=== PATIENT | male | born 1990 | race Hispanic/Latino ===

== ENCOUNTER 2017-10-25 16:36 | Emergency (ER) | payer OTHER ==
[~2017-10-25] VITALS: Ht 175.3 cm; Wt 122.0 kg
[2017-10-25] MEDS ORDERED: CLINDAMYCIN PHOS 600 MG/ 4 ML VIAL IM ONE (17:00)
[2017-10-25] MEDS ORDERED: DOXYCYCLINE HYCLATE TABLET 100 MG TAB PO ONE (17:00)
[2017-10-25] MEDS ORDERED: CLINDAMYCIN PHOS 300MG/2ML VIAL IM ONE (17:15)
== END 2017-10-25 17:43 | disposition home or self-care (01) ==
LOC: ER 16:36
DX: M79.662 Pain in left lower leg (principal); R21 Rash and other nonspecific skin eruption; L03.116 Cellulitis of left lower limb
CPT/HCPCS: 99283

== ENCOUNTER 2017-10-29 19:36 | Inpatient (IN) | payer OTHER ==
[~2017-10-29] VITALS: Ht 177.8 cm; Wt 126.1 kg
[2017-10-29] MEDS ORDERED: MORPHINE SULFATE INJ 4 MG/ML INJ IV STA (19:49)
[2017-10-29] MEDS ORDERED: SODIUM CHLORIDE 0.9% 1000ML 1,000 ML IV STA (19:49)
[2017-10-29] MEDS ORDERED: ONDANSETRON HCL INJ 2 MG/ML VIAL IV STA (19:49)
[2017-10-29] MEDS ORDERED: VANCOMYCIN 1GM/NS 250 ML 250 ML IV SCH (20:00)
[2017-10-29 20:21] LABS: BASOPHILS % 0.3 % (0.0-1.0); EOSINOPHILS # (AUTO) 0.3 (0.0-0.4); EOSINOPHILS % 2.4 % (0.0-6.0); HEMATOCRIT 41.7 % (38.2-49.6); HEMOGLOBIN 13.9 g/dL (14.0-18.0); LYMPHOCYTES # (AUTO) 2.4 (1.0-3.2); LYMPHOCYTES % 17.7 % (18.0-39.1); MEAN CORPUSCULAR HEMOGLOBIN 28.5 pg (28-32); MEAN CORPUSCULAR HGB CONC 33.3 g/dL (31-35); MEAN CORPUSCULAR VOLUME 85.5 fL (81-99); MONOCYTES # (AUTO) 0.7 (0.2-0.8); PLATELET COUNT 386 x10e3/uL (140-360); RED BLOOD COUNT 4.88 x10e6/uL (4.3-5.7); RED CELL DISTRIBUTION WIDTH 12.6 % (11.7-14.4)
[2017-10-29] MEDS ORDERED: ONDANSETRON HCL INJ 2 MG/ML VIAL IV PRN (20:30)
[2017-10-29 20:41] LABS: ALANINE AMINOTRANSFERASE 26 IU/L (0-55); ALBUMIN 3.8 g/dL (3.5-5.0); ALBUMIN/GLOBULIN RATIO 0.9 (0.8-2.0); ALKALINE PHOSPHATASE 96 IU/L (40-150); ANION GAP 13.8 mmol/L (8-16); BLOOD UREA NITROGEN 14 mg/dL (7-26); BUN/CREATININE RATIO 16 (6-25); CALCIUM 9.8 mg/dL (8.4-10.2); CARBON DIOXIDE 23 mmol/L (22-29); CHLORIDE 105 mmol/L (98-107); CREATININE, SERUM 0.85 mg/dL (0.72-1.25); EST GLOMERULAR FILTRATION RATE > 60 ML/MIN (60-); GLUCOSE 126 mg/dL (74-118); POTASSIUM 3.8 mmol/L (3.5-5.1); SODIUM 138 mmol/L (136-145)
[2017-10-29 20:45] LABS: BILIRUBIN,URINE NEGATIVE (NEGATIVE); CLARITY,URINE CLEAR (CLEAR); COLOR,URINE YELLOW (YELLOW); KETONES,URINE NEGATIVE (NEGATIVE); LEUKOCYTE ESTERASE ,URINE NEGATIVE (NEGATIVE); NITRITE,URINE NEGATIVE (NEGATIVE); PROTEIN,URINE DIPSTICK NEGATIVE (NEGATIVE); URINE UROBILINOGEN 0.2 mg/dL (0.2 - 1)
[2017-10-29 21:05] LABS: EPITHELIAL CELLS,URINE RARE /LPF; WBC,URINE (MAN) 0-5 /HPF (0-5)
[2017-10-29 21:06] LABS: MUCUS,URINE MODERATE (RARE)
[2017-10-29] MEDS: PIPER-TAZ 3.375 GM 50 ML IV SCH (21:58)
--- NOTE | 2017-10-29 22:34 | Diagnostic Imaging Report ---
LOWER LEG LEFT HISTORY: Left leg pain. COMPARISON: None FINDINGS: Bones: No displaced fracture. Well-circumscribed osseous fragment distal to the lateral malleolus most likely related to old injury. Osseous alignment is within normal limits. Joints: The joint spaces are well-maintained. Soft tissues: Mild to moderate diffuse soft tissue edema along the distal left lower extremity IMPRESSION: 1. No acute osseous abnormality. 2. Soft tissue edema in the distal left lower extremity Signed by: Dr. Fred Dobbins M.D. on 10/29/2017 10:31 PM
[2017-10-30] VITALS (10 sets, daily range): BP systolic 103–149; BP diastolic 55–78
[2017-10-30] MEDS: PIPER-TAZ 3.375 GM 50 ML IV SCH ×2 (02:00→08:40)
[2017-10-30] MEDS: SODIUM CHLORIDE 0.9% 1000ML 1,000 ML IV SCH ×3 (04:37→16:31)
[2017-10-30 05:22] LABS: BASOPHILS # (AUTO) 0.1 (0.0-0.1); BASOPHILS % 0.4 % (0.0-1.0); EOSINOPHILS # (AUTO) 0.4 (0.0-0.4); HEMATOCRIT 36.9 % (38.2-49.6); LYMPHOCYTES # (AUTO) 3.5 (1.0-3.2); MEAN CORPUSCULAR HEMOGLOBIN 28.4 pg (28-32); MEAN CORPUSCULAR HGB CONC 32.5 g/dL (31-35); MEAN CORPUSCULAR VOLUME 87.4 fL (81-99); MONOCYTES # (AUTO) 0.8 (0.2-0.8); NEUTROPHILS % 65.1 % (38.7-80.0); PLATELET COUNT 329 x10e3/uL (140-360); RED BLOOD COUNT 4.22 x10e6/uL (4.3-5.7); RED CELL DISTRIBUTION WIDTH 12.8 % (11.7-14.4)
[2017-10-30 06:03] LABS: ALANINE AMINOTRANSFERASE 21 IU/L (0-55); ALBUMIN 3.4 g/dL (3.5-5.0); ALBUMIN/GLOBULIN RATIO 0.9 (0.8-2.0); ALKALINE PHOSPHATASE 86 IU/L (40-150); ANION GAP 11.6 mmol/L (8-16); BLOOD UREA NITROGEN 14 mg/dL (7-26); BUN/CREATININE RATIO 16 (6-25); CALCIUM 9.3 mg/dL (8.4-10.2); CARBON DIOXIDE 27 mmol/L (22-29); CHLORIDE 106 mmol/L (98-107); CREATININE, SERUM 0.88 mg/dL (0.72-1.25); EST GLOMERULAR FILTRATION RATE > 60 ML/MIN (60-); GLUCOSE 94 mg/dL (74-118); POTASSIUM 4.6 mmol/L (3.5-5.1); SODIUM 140 mmol/L (136-145)
[2017-10-30] MEDS: VANCOMYCIN 1GM/NS 250 ML 250 ML IV SCH ×2 (09:57→21:43)
[2017-10-30] MEDS ORDERED: ENOXAPARIN SOD INJ 40 MG/0.4 ML SYR SC SCH (10:30)
--- NOTE | 2017-10-30 11:09 | History and Physical ---
Mr. Camp is a pleasant 27-year-old man who works at a [employer]. CHIEF COMPLAINT: He presented to the emergency room overnight with left leg redness and discomfort. HISTORY OF PRESENT ILLNESS: The patient reports he first noted some redness of left leg in September and saw Dr. Ruiz. He was given evidently generic Bactrim and some topical lotion but it did not resolve the problem. He reports that the left leg and left foot do swell when he is ambulatory, and it is painful and throbbing. He thinks he has not had any fever. PAST MEDICAL HISTORY: Relatively insignificant. He reports that he did have problems with acne when he was a teenager. He reports he visited at [place] once in 2013 with chest discomfort, found to be gastrointestinal in origin. He had a keloid removed from his left ear in July [address] Starks. MEDICATIONS: He takes no regular medications. PERSONAL AND SOCIAL HISTORY: He is a smoker. He reports that he stopped using alcohol when he started the previous antibiotic. FAMILY HISTORY: Reports his father had a recent pacemaker. His mother seems well. He has a sister who lives in [place] but cannot tell me anymore about that. REVIEW OF SYSTEMS Gastrointestinal: Negative. Cardiac: Negative. PHYSICAL EXAMINATION GENERAL: Exam at this time shows a large, obese man, 5 feet 10 inches tall, weighing 278 pounds. BMI is 39.88. VITAL SIGNS: Blood pressure 108/55. Afebrile. HEAD, EYES, EARS, NOSE AND THROAT: Unremarkable. NECK: He has several scars from acne. No jugular venous distention. No bruit. THORAX: Heart sounds S1 and S2 are equal. No murmurs. LUNGS: Clear. ABDOMEN: Markedly protuberant. Multiple scars from acne. Normal bowel sounds. Nontender. EXTREMITIES: Left anterior tibial area is erythematous with some sloughing of the superficial structures of skin. X-ray of the leg is negative. ASSESSMENT 1. Cellulitis, etiology not clear. 2. Rule out possible deep venous thrombosis with previous airplane flight, though it was in July. Will check venous Doppler scan of legs. Broad-spectrum antibiotics. Consult ID. Job#: [id number] cc:DARYL RUIZ MD
--- NOTE | 2017-10-30 13:02 | Consultation ---
DATE OF CONSULTATION: October 30, 2017 HISTORY OF PRESENT ILLNESS: Mr. Camp is a pleasant 27-year-old gentleman with a past medical history with some keloid removed from his left ear and no other medical history in the past. He apparently had some redness on his left lower extremity. He went and saw Dr. Ruiz. He received some antibiotics, sounds to be IM antibiotic, and also given some Bactrim for 2 weeks and sent home. Apparently it did not get any better and showed no improvement. He came to the hospital and he states that he received 2 shots when he was here and given Cleocin and doxycycline as oral and discharged home. He was instructed to report back to the hospital if cellulitis did not improve. Apparently it did not improve and patient is here now. PAST MEDICAL HISTORY: As mentioned above, nonsignificant. No other complaints. NO reports of diabetes, hypertension or hypothyroidism or any thyroid issues, disorders. There is no endocrine disorders. No medical issues except states that his labs recently done, sugar was 110. He also had some keloid removed from his left ear with a flap closure which sounds to be more cosmetic. ALLERGIES: ALLERGIC TO CODEINE. SOCIAL HISTORY: Patient works at the [employer] and he smokes about a pack of cigarettes every 3 to 4 days he states. LABORATORY STUDIES: White blood cells of 13.87, hemoglobin 12, platelet count of 329. Sodium 140, potassium 4.6, chloride 102, CO2 27, BUN 0.14, creatinine 0.88, glucose 94. AST 11, ALT 21. UA was not significant. X-ray of the lower extremity showed no acute osseous abnormality. Soft tissue edema over the distal left lower extremity. Blood culture and urine cultures are pending. REVIEW OF SYSTEMS: Complains of left leg cellulitis. Some pain, not significant. No nausea, vomiting, fever or chills, chest pain or shortness of breath. PHYSICAL EXAMINATION GENERAL: Alert and oriented in bed. VITAL SIGNS: Temperature 97.3, pulse 80, respirations 18, blood pressure was 108/55. CV: S1 and S2. CHEST: Equal expansion. Clear to auscultation. No acute distress. ABDOMEN: Soft, obese, nontender. Bowel sounds positive in 4 quadrants. HEENT: Moist, no pallor, no JVD. EXTREMITIES: He has cellulitis of the left lower extremity with maybe 1 to 2+ swelling and redness. There is a scab kind of looking area on the anterior left lower extremity on the tib-fib area. It could be the site of a previous wound. He also has old small little dots that seems more like a scar tissue after small little folliculitis has healed. There is no redness, no drainage obvious at this point. ASSESSMENT AND PLAN: This is a 27-year-old gentleman with a cellulitis of the left lower extremity, attempted outpatient treatment with antibiotics which has failed, now admitted for evaluation and treatment in-house. We will change antibiotics to vancomycin, monitor the patient via hospitalization. Further management is based on daily findings on laboratory and physical examination. We want to thank you for this consult. I have discussed this case with Dr. Altman in detail. Further management, as mentioned above, based on what we see as more labs start coming in. Dictated by: DEQUAN Weeks. Job#: [id number] DG
[2017-10-30] MEDS: ENOXAPARIN SOD INJ 40 MG/0.4 ML SYR SC SCH (16:31)
[2017-10-30] MEDS ORDERED: MAGNESIUM/ALUMINUM/SIMETHICONE 30 ML UDC PO PRN (18:45)
[2017-10-30] MEDS ORDERED: ZOLPIDEM TARTRATE 5 MG TAB PO PRN (18:45)
[2017-10-30] MEDS ORDERED: ACETAMINOPHEN 325 MG TAB PO PRN (18:45)
[2017-10-31] VITALS (7 sets, daily range): BP systolic 127–142; BP diastolic 60–93
[2017-10-31] MEDS: SODIUM CHLORIDE 0.9% 1000ML 1,000 ML IV SCH ×4 (02:20→21:53)
[2017-10-31] MEDS: VANCOMYCIN 1GM/NS 250 ML 250 ML IV SCH ×2 (09:04→21:45)
--- NOTE | 2017-10-31 14:35 | Diagnostic Imaging Report ---
PROCEDURE: A single AP view of the chest. COMPARISON: None. INDICATIONS: INFECTION OF THE LEG, PICC LINE FINDINGS: Lines/tubes: Right-sided PICC has been placed and terminates with the tip overlying the SVC. Lungs: The lungs are well inflated and clear. There is no evidence of pneumonia or pulmonary edema. Pleura: There is no pleural effusion or pneumothorax. Heart and mediastinum: The heart and the mediastinum are unremarkable. Bones: No acute bony abnormality. IMPRESSION: 1. No acute cardiopulmonary disease. 2. Recently placed right PICC appropriate in location. Kolton Newberry D.O. Dictated by: Kolton Newberry D.O. on 10/31/2017 at 14:40 Electronically approved by: Kolton Newberry D.O. on 10/31/2017 at 14:40
[2017-10-31] MEDS: ENOXAPARIN SOD INJ 40 MG/0.4 ML SYR SC SCH (16:14)
[2017-11-01 00:02] VITALS: BP 134/96
[2017-11-01] MEDS: SODIUM CHLORIDE 0.9% 1000ML 1,000 ML IV SCH (04:09)
[2017-11-01 05:25] VITALS: BP 115/74
[2017-11-01 05:37] LABS: BASOPHILS # (AUTO) 0.1 (0.0-0.1); BASOPHILS % 0.4 % (0.0-1.0); EOSINOPHILS # (AUTO) 0.3 (0.0-0.4); EOSINOPHILS % 2.6 % (0.0-6.0); HEMATOCRIT 35.5 % (38.2-49.6); HEMOGLOBIN 11.7 g/dL (14.0-18.0); LYMPHOCYTES # (AUTO) 2.8 (1.0-3.2); LYMPHOCYTES % 23.1 % (18.0-39.1); MEAN CORPUSCULAR HEMOGLOBIN 28.3 pg (28-32); MEAN CORPUSCULAR VOLUME 85.7 fL (81-99); MONOCYTES # (AUTO) 0.9 (0.2-0.8); MONOCYTES % 7.7 % (4.4-11.3); NEUTROPHILS % 65.7 % (38.7-80.0); PLATELET COUNT 332 x10e3/uL (140-360); RED BLOOD COUNT 4.14 x10e6/uL (4.3-5.7); RED CELL DISTRIBUTION WIDTH 12.4 % (11.7-14.4)
[2017-11-01 08:00] VITALS: BP 128/59
[2017-11-01 08:19] VITALS: BP 128/59
[2017-11-01] MEDS: VANCOMYCIN 1GM/NS 250 ML 250 ML IV SCH (09:37)
--- NOTE | 2017-11-01 10:40 | Discharge Summary ---
HISTORY OF PRESENT ILLNESS: Mr. Camp is a pleasant, 27-year-old, obese man who works at [employer], who presented to the emergency room with complaint of left anterior tibial discomfort and redness. HOSPITAL COURSE: Patient was felt to have cellulitis. Blood cultures were drawn and urine culture sent. He was started on broad-spectrum antibiotics. Venous Doppler scan of the legs was obtained which showed no evidence of any DVT, but the patient shared with us that even though he weighs 278 pounds that he lost 30 pounds recently after being told that he had some hyperglycemia with family history of diabetes. Today, the patient is afebrile. The erythema and cellulitis are very slowly improving. Hemoglobin A1c today is 5.2. He is discharged to home with caution that he will continue to receive IV vancomycin through his PICC line with Dr. Altman and that he should avoid edema with his legs, recognizing that he stands for most of the time at his job. He was s cautioned that he could wear elastic stockings or consider changing his profession. DISCHARGE DIAGNOSES 1. Cellulitis. 2. Obesity. 3. Family history of diabetes. 4. Mild hyperglycemia. ROXY COPPOLA MD Job#: [id number] cc:MD KINZA SANTORO MD
== END 2017-11-01 12:00 | disposition home or self-care (01) | DRG 603 ==
LOC: ER 19:36 → ERHOLD 21:05 → MED/SURG3 21:48
PROVIDERS: ADMIT Internal Medicine Cardiovascular Disease; ATTEND Internal Medicine Cardiovascular Disease
PROC: 02HV33Z Insertion of Infusion Device into Superior Vena Cava, Percutaneous Approach (ICD-10-PCS; principal; 2017-10-31)
DX: L03.116 Cellulitis of left lower limb (principal); E66.9 Obesity, unspecified; Z68.39 Body mass index [BMI] 39.0-39.9, adult; F17.210 Nicotine dependence, cigarettes, uncomplicated
CPT/HCPCS: 36415; 36569; 71045; 80053; 80202; 81001; 83036; 85025; 87040; 87086; 93970; 96361; 99284; J1650; J2270; J2405; J2543; J3370; J7030